=== PATIENT | male | born 1945 | race Caucasian/White ===

== ENCOUNTER 2020-09-03 15:14 | Emergency (ER) | payer MEDICARE, OTHER ==
--- NOTE | 2020-09-03 16:14 | ERPHSYRPT ---
- History of Present Illness Historian: patient Patient Subjective Stated Complaint: pt here for left falnk pain off and on, he states he thinks it a kidney stone, some nausea, no fever Triage Nursing Assessment: pt alert, walked in, resp easy, skin w/d/p. abd soft, no edema Physician History: 75 yo wm w L flank pain x10 hours today which resolved 2 hours before ER arrival. Pt states that it feels like a kidney stone which he had many yrs ago. He is now painfree. He denies vomiting/dysuria/hematuria/fever/chest pain/diarrhea/melena/hematochezia. Pt has been nauseated. Pain was an 8 on scale and started to improve when pt took 2 of his Clarence's earlier today. Timing/Duration: today Activities at Onset: sleep Quality: stabbing Abdominal Pain Onset Location: flank Pain Radiation: no radiation Severity of Pain-Max: severe Severity of Pain-Current: none Modifying Factors: Improves With: other (Better w Clarence x2) Associated Symptoms: back, nausea, No chest pain, No diaphoresis, No diarrhea, No fever/chills, No fatigue, No headache, No heartburn, No loss of appetite, No neck pain, No rash, No shortness of breath, No syncope, No testicular pain, No vomiting, No weakness Previous symptoms: same symptoms as today (w Kidney stones) Home Medications: Hydrocodone Bit/Acetaminophen [Hydrocodon-Acetaminophen 5-325] 1 ea DAILY 09/03/20 [History] Lisinopril 10 mg [Zestril 10 MG] 1 ea DAILY 09/03/20 [History] Simvastatin [Zocor] 1 ea DAILY 09/03/20 [History] Hx Influenza Vaccination/Date Given: Yes Hx Pneumococcal Vaccination/Date Given: Yes Immunizations Up to Date: Yes Travel Risk - International Travel Have you traveled outside of the country in past 3 weeks: No - Coronavirus Screening Are you exhibiting any of the following symptoms?: No Close contact with a COVID-19 positive Pt in past 14-21 Days: No - Review of Systems Constitutional: No Symptoms Eyes: No Symptoms Ears, Nose, & Throat: No Symptoms Respiratory: No Symptoms Cardiac: No Symptoms Abdominal/Gastrointestinal: Nausea, Appetite Changes Genitourinary Symptoms: Flank Pain Musculoskeletal: No Symptoms Skin: No Symptoms Neurological: No Symptoms Psychological: No Symptoms Endocrine: No Symptoms Hematologic/Lymphatic: No Symptoms Immunological/Allergic: No Symptoms - Past Medical History Pertinent Past Medical History: Yes Cardiac History: High Cholesterol, Hypertension - Past Surgical History Past Surgical History: Yes Gastrointestinal: Pancreatic Surgery Musculoskeletal: Orthopedic Surgery Male Surgical History: Testicular Surgery Other Surgical History: knee, hand - Social History Smoking Status: Current every day smoker Exposure to second hand smoke: Yes Drug Use: none Patient Lives Alone: Yes Significant Family History: no pertinent family hx - Nursing Vital Signs Nursing Vital Signs: Initial Vital Signs Temperature 97.0 F 09/03/20 15:30 Pulse Rate 86 09/03/20 15:30 Respiratory Rate 18 09/03/20 15:30 Blood Pressure 168/95 09/03/20 15:30 O2 Sat by Pulse Oximetry 94 L 09/03/20 15:30 Pain Scale Pain Intensity 0 - Physical Exam General Appearance: no apparent distress Eye Exam: PERRL/EOMI, eyes nml inspection Ears, Nose, Throat Exam: normal ENT inspection, TMs normal, pharynx normal, moist mucous membranes Neck Exam: normal inspection, non-tender, supple, full range of motion, No meningismus, No mass, No Brudzinski, No Kernig's Respiratory Exam: normal breath sounds, lungs clear, airway intact Cardiovascular Exam: regular rate/rhythm, normal heart sounds, normal peripheral pulses, No murmur Gastrointestinal/Abdomen Exam: soft, normal bowel sounds, No tenderness, No distention, No guarding, No ecchymosis Back Exam: normal inspection, normal range of motion, No CVA tenderness, No vertebral tenderness Extremity Exam: normal inspection, normal range of motion Neurologic Exam: alert, oriented x 3, cooperative, charge operator II-XII nml as tested, normal mood/affect, sensation nml, No nml cerebellar function, No nml station & gait, No motor deficits, No sensory deficit Skin Exam: normal color, warm, dry Lymphatic Exam: No adenopathy SpO2 Interpretation: normal SpO2: 94 O2 Delivery: Room Air - Course Nursing assessment & vital signs reviewed: Yes - CT Exams Abdomen/Pelvis CT Interpretation: Discussed w/radiologist (4mm distal L ureteral stone/Mild hydro/B renal cysts/splenomegaly) Ordered Tests: Active Orders 24 hr Category Date Time Status ABDOMEN AND PELVIS W/0 CONTRAS [CT] Stat Exams 09/03/20 15:55 Completed UA W/RFX UR CULTURE Stat Lab 09/03/20 16:03 Completed Lab/Rad Data: Laboratory Results 09/03/20 Range/Units 16:03 Urine Color YELLOW (YELLOW) Urine Appearance CLEAR (CLEAR) Urine pH 5.0 (5-6) Ur Specific [place] 1.013 (1.005-1.025) Urine Protein NEGATIVE (Negative) Urine Ketones NEGATIVE (NEGATIVE) Urine Blood MODERATE (0-5) Toney/ul Urine Nitrite NEGATIVE (NEGATIVE) Urine Bilirubin NEGATIVE (NEGATIVE) Urine Urobilinogen NEGATIVE (0-1) mg/dL Ur Leukocyte Esterase NEGATIVE (NEGATIVE) Urine WBC (Auto) NONE (0-5) /HPF Urine RBC (Auto) 16-25 (0-2) /HPF U Epithel Cells (Auto) NONE (FEW) /HPF Urine Bacteria (Auto) NONE (NEGATIVE) /HPF Urine Mucus (Auto) SLIGHT (NEGATIVE) /HPF Urine Culture Reflexed NO (NO) Urine Glucose NEGATIVE (NEGATIVE) mg/dL - Progress Progress: unchanged Progress Note: 09/03/20 17:12 Pt painfree during stay. Counseled pt/family regarding: lab results, rad results - Departure Departure Disposition: Home Clinical Impression: Ureterolithiasis Condition: Stable Critical Care Time: No Referrals: DOCTOR,NO FAMILY [Primary Care Provider] - Instructions: Kidney Stones (DC) Additional Instructions: Strain all urine Home pain meds as needed Return to ER for increasing pain or temperature greater than 100.5 Follow up with family MD or urologist
[2020-09-03 16:16] LABS: Appearance CLEAR (CLEAR); Bilirubin NEGATIVE (NEGATIVE); Blood MODERATE Ery/ul (0-5); Glucose NEGATIVE (NEGATIVE); Ketones NEGATIVE (NEGATIVE); Leukocyte Esterase NEGATIVE (NEGATIVE); Mucus SLIGHT /HPF (NEGATIVE); Nitrite NEGATIVE (NEGATIVE); Protein,Urine Dip NEGATIVE (Negative); Specific Gravity 1.013 (1.005-1.025); Urobilinogen NEGATIVE mg/dL (0-1)
--- NOTE | 2020-09-03 16:38 | XRAY ---
Indication: Left flank pain. Remote history of kidney stones. Multiple contiguous axial images obtained through the abdomen and pelvis without contrast using renal stone protocol. Comparison: None Lung bases are clear. Heart is not enlarged. Moderate-sized hiatal hernia. There is a 4 mm distal left ureter calculus approximately 4 cm proximal to the UVJ. Left ureter is slightly prominent with mild hydronephrosis and mild perinephric stranding consistent with obstructive uropathy. No free fluid/air. Inferior left renal pole demonstrates a 13.7 cm exophytic cyst with thin rim of calcification. Left kidney demonstrates 2 exophytic cysts, largest midpole posteriorly measuring 5.1 cm. 15.5 cm splenomegaly with 8 cm densely calcified cyst. Cyst demonstrates minimal intraluminal hyperdensities/calcifications layering. Several hepatic/splenic calcified granulomas. 1 cm right lobe hepatic cyst/hemangioma. Body/tail of pancreas are surgically absent. Enlarged prostate gland with chunky benign-appearing calcifications slightly impresses on the base of the bladder. Noncontrasted stomach and bowel loops appear nonobstructed. Remaining gallbladder, adrenal glands, and bladder appear unremarkable for noncontrast exam. Moderate scattered aortoiliac calcifications without AAA. Osseous structures demonstrates mild osteopenia, mild/moderate multilevel thoracolumbar degenerative spondylosis, and moderate dextrorotoscoliosis centered at L2. 1.3 cm right innominate bone island. Impression: 1. 4 mm distal left ureter calculus producing obstructive uropathy as detailed. 2. Incidental large bilateral renal cysts, splenomegaly with large densely calcified complex cyst, moderate sized hiatal hernia, small hepatic cyst/hemangioma, enlarged prostate gland, and chronic bony findings.
[2020-09-03 17:58] VITALS: BP 133/81; PULSE 67
[2020-09-03 20:16] VITALS: O2SAT 94
== END 2020-09-03 17:55 | disposition home or self-care (01) ==
LOC: ED 15:14
DX: N20.1 Calculus of ureter (principal); I10 Essential (primary) hypertension; Z79.899 Other long term (current) drug therapy; E78.00 Pure hypercholesterolemia, unspecified; Z72.0 Tobacco use
CPT/HCPCS: 74176; 81001; 99284

== ENCOUNTER 2020-09-09 12:56 | Emergency (ER) | payer MEDICARE, OTHER ==
[2020-09-09] MEDS ORDERED: Sodium Chloride 0.9% 1000 ML 1,000 ML IV STA (13:16)
[2020-09-09] MEDS ORDERED: TORAdol 30 mg Injection IV ONE (13:16)
--- NOTE | 2020-09-09 13:31 | ERPHSYRPT ---
- History of Present Illness Time Seen by Provider: 09/09/20 13:15 Source: patient Exam Limitations: no limitations Patient Subjective Stated Complaint: pt here for left flank pain, started at 0200 this morning,pt has kidney stone last week that was in bladder Triage Nursing Assessment: pt alert, walked in, face mask in place, resp easy, skin w/d/p.abd soft, he states he has some vomiting today Physician History: Patient is a 75-year-old male presents to our ED with complaints of left-sided flank pain. Patient was in our ED approximately 1 week ago. He was diagnosed with a 4 mm left ureterolithiasis. Patient was advised to follow-up with a urologist or his family doctor but has not done so. Patient is here because he is experiencing recurrence of his pain. Pain described as an ache that is localized. No trauma. No fever. Patient states he has been feeling somewhat nauseous and vomited prior to arrival. No obvious hematuria or dysuria. Symptoms are mild to moderate in intensity. No specific worsening or improving factors. Patient voices no other complaints or concerns at this time. Timing/Duration: today Severity: moderate Modifying Factors: Improves With: nothing Associated Symptoms: nausea, vomiting, No shortness of breath, No diaphoresis, No cough, No chills, No chest pain, No headaches, No loss of appetite, No malaise, No syncope, No seizure, No weakness Allergies/Adverse Reactions: No Known Drug Allergies Allergy (Unverified 09/09/20 13:13) Home Medications: Hydrocodone Bit/Acetaminophen [Hydrocodon-Acetaminophen 5-325] 1 ea DAILY 09/03/20 [History] Lisinopril 10 mg [Zestril 10 MG] 1 ea DAILY 09/03/20 [History] Simvastatin [Zocor] 1 ea DAILY 09/03/20 [History] Hx Tetanus, Diphtheria Vaccination/Date Given: Yes Hx Influenza Vaccination/Date Given: Yes Hx Pneumococcal Vaccination/Date Given: Yes Immunizations Up to Date: Yes Travel Risk - International Travel Have you traveled outside of the country in past 3 weeks: No - Coronavirus Screening Are you exhibiting any of the following symptoms?: No Close contact with a COVID-19 positive Pt in past 14-21 Days: No - Review of Systems Constitutional: No Symptoms, No Fever, No Chills Eyes: No Symptoms Ears, Nose, & Throat: No Symptoms Respiratory: No Symptoms, No Cough, No Dyspnea Cardiac: No Symptoms, No Chest Pain, No Edema, No Syncope Abdominal/Gastrointestinal: No Symptoms, No Abdominal Pain, No Nausea, No Vomiting, No Diarrhea Genitourinary Symptoms: No Symptoms, No Dysuria Musculoskeletal: No Symptoms, No Back Pain, No Neck Pain Skin: No Symptoms, No Rash Neurological: No Symptoms, No Dizziness, No Focal Weakness, No Sensory Changes Psychological: No Symptoms Endocrine: No Symptoms Hematologic/Lymphatic: No Symptoms Immunological/Allergic: No Symptoms All Other Systems: Reviewed and Negative - Past Medical History Pertinent Past Medical History: Yes Cardiac History: High Cholesterol, Hypertension - Past Surgical History Past Surgical History: Yes Gastrointestinal: Pancreatic Surgery Musculoskeletal: Orthopedic Surgery Male Surgical History: Testicular Surgery Other Surgical History: knee, hand - Social History Smoking Status: Current every day smoker Exposure to second hand smoke: Yes Drug Use: none Patient Lives Alone: No Significant Family History: no pertinent family hx - Nursing Vital Signs Nursing Vital Signs: Initial Vital Signs Temperature 97.2 F 09/09/20 13:08 Pulse Rate 85 09/09/20 13:08 Respiratory Rate 18 09/09/20 13:08 Blood Pressure 170/100 09/09/20 13:08 O2 Sat by Pulse Oximetry 94 L 09/09/20 13:08 Pain Scale Pain Intensity 4 - Physical Exam General Appearance: no apparent distress, alert Eye Exam: PERRL/EOMI, eyes nml inspection Ears, Nose, Throat Exam: normal ENT inspection, TMs normal, pharynx normal, moist mucous membranes Neck Exam: normal inspection, non-tender, supple, full range of motion Respiratory Exam: normal breath sounds, lungs clear, No respiratory distress Cardiovascular Exam: regular rate/rhythm, normal heart sounds, normal peripheral pulses Gastrointestinal/Abdomen Exam: soft, normal bowel sounds, other (Left-sided CVA tenderness.), No tenderness, No mass Back Exam: normal inspection, normal range of motion, No CVA tenderness, No vertebral tenderness Extremity Exam: normal inspection, normal range of motion, pelvis stable Neurologic Exam: alert, oriented x 3, cooperative, normal mood/affect, nml cerebellar function, nml station & gait, sensation nml, No motor deficits Skin Exam: normal color, warm, dry, No rash Lymphatic Exam: No adenopathy SpO2 Interpretation: normal SpO2: 94 O2 Delivery: Room Air - Course Nursing assessment & vital signs reviewed: Yes - CT Exams Abdomen/Pelvis CT Interpretation: Tele-radiologist Report (Hiatal hernia, UVJ stone, hydronephrosis, perinephric stranding, bilateral renal cyst, splenomegaly, prostate hypertrophy, osteopenia, spondylolysis, scoliosis) Ordered Tests: Active Orders 24 hr Category Date Time Status IV Insertion STAT Care 09/09/20 13:16 Active ABDOMEN AND PELVIS W/0 CONTRAS [CT] Stat Exams 09/09/20 13:17 Completed CBC W DIFF Stat Lab 09/09/20 13:33 Completed CMP Stat Lab 09/09/20 13:33 Completed UA W/RFX UR CULTURE Stat Lab 09/09/20 13:51 Ordered Medication Summary Discontinued Medications Generic Name Dose Route Start Last Admin Trade Name Freq PRN Reason Stop Dose Admin Sodium Chloride 1,000 mls @ 999 mls/hr 09/09/20 13:16 09/09/20 13:55 Sodium Chloride 0.9% 1000 Ml IV 09/09/20 14:16 999 mls/hr .Q1H1M STA Administration Sodium Chloride Confirm 09/09/20 13:50 Sodium Chloride 0.9% 1000 Ml Administered 09/09/20 13:51 Dose 1,000 mls @ ud .ROUTE .STK-MED ONE Ketorolac Tromethamine 30 mg 09/09/20 13:16 09/09/20 13:56 Toradol 30 Mg Injection IV 09/09/20 13:17 30 mg STAT ONE Administration Ketorolac Tromethamine Confirm 09/09/20 13:50 Toradol 30 Mg Injection Administered 09/09/20 13:51 Dose 30 mg .ROUTE .STK-MED ONE Lab/Rad Data: Laboratory Result Diagrams 09/09/20 13:33 09/09/20 13:33 Laboratory Results 09/09/20 09/09/20 Range/Units 13:33 13:33 WBC 11.9 H (4.0-10.5) K/mm3 RBC 5.31 (4.1-5.6) M/mm3 Hgb 14.8 (12.5-18.0) gm/dl Hct 46.1 (42-50) % MCV 86.8 (78-100) fl MCH 27.9 (26-32) pg MCHC 32.1 (32-36) g/dl RDW 13.2 (11.5-14.0) % Plt Count 162 (150-450) K/mm3 MPV 11.1 H (7.5-11.0) fl Gran % 88.2 H (36.0-66.0) % Eos # (Auto) 0.01 (0-0.5) Absolute Lymphs (auto) 0.72 L (1.0-4.6) Absolute Monos (auto) 0.67 (0.0-1.3) Lymphocytes % 6.0 L (24.0-44.0) % Monocytes % 5.6 (0.0-12.0) % Eosinophils % 0.1 (0.00-5.0) % Basophils % 0.1 (0.0-0.4) % Absolute Granulocytes 10.51 H (1.4-6.9) Basophils # 0.01 (0-0.4) Sodium 137 (137-145) mmol/L Potassium 4.7 (3.5-5.1) mmol/L Chloride 103 (98-107) mmol/L Carbon Dioxide 26 (22-30) mmol/L Anion Gap 11.7 (5-15) MEQ/L BUN 28 H (9-20) mg/dL Creatinine 1.06 (0.66-1.25) mg/dL Estimated GFR > 60.0 ML/MIN Glucose 163 H (74-106) mg/dL Calcium 9.4 (8.4-10.2) mg/dL Total Bilirubin 1.10 (0.2-1.3) mg/dL AST 27 (17-59) U/L ALT 18 (0-50) U/L Alkaline Phosphatase 63 (38-126) U/L Serum Total Protein 6.4 (6.3-8.2) g/dL Albumin 4.2 (3.5-5.0) g/dL - Progress Progress: improved Progress Note: 09/09/20 14:37 Patient reassessed. He is pain-free. The stone appears to be at the lumen just prior to elimination into the bladder. Patient did not receive Flomax during his last visit. We will provide patient a prescription for Flomax and Toradol. [facility] He will call the [place] today to schedule an appointment with a urologist. Renal function within normal limits. 09/09/20 14:38 Counseled pt/family regarding: lab results, diagnosis, need for follow-up, rad results - Departure Departure Disposition: Home Clinical Impression: Ureterolithiasis, Hydronephrosis, Renal cyst, Splenomegaly, Prostate hypertrophy, Osteopenia, Spondylolysis, Scoliosis Condition: Stable Critical Care Time: No Referrals: [facility],'[facility] [Primary Care Provider] - Instructions: Kidney Stones (DC) Prescriptions: Tamsulosin HCl 0.4 mg [Flomax 0.4 MG] 0.4 mg PO DAILY 14 Days #14 cap Ketorolac Tromethamine [Toradol] 10 mg PO TID 5 Days #15 tablet
[2020-09-09 13:40] LABS: Absolute Neutrophil Ct (ANC) 10.51 (1.4-6.9); BASOPHIL % 0.1 % (0.0-0.4); Basophil (Absolute #) 0.01 (0-0.4); Eosinophil % 0.1 % (0.00-5.0); Eosinophil (Absolute #) 0.01 (0-0.5); Hematocrit 46.1 % (42-50); Hemoglobin 14.8 gm/dl (12.5-18.0); Lymphocyte (Absolute #) 0.72 (1.0-4.6); Mean Cell Volume 86.8 fl (78-100); Mean Corpuscular Hemoglobin 27.9 pg (26-32); Mean Corpuscular Hgb Concent. 32.1 g/dl (32-36); Mean Platelet Volume 11.1 fl (7.5-11.0); Monocyte (Absolute #) 0.67 (0.0-1.3); Monocytes % 5.6 % (0.0-12.0); Neutrophil % 88.2 % (36.0-66.0); Platelet Count 162 K/mm3 (150-450); Red Blood Count 5.31 M/mm3 (4.1-5.6); Red Cell Distribution Width 13.2 % (11.5-14.0); White Blood Count 11.9 K/mm3 (4.0-10.5)
[2020-09-09 13:46] LABS: ALBUMIN 4.2 g/dL (3.5-5.0); ALKALINE PHOSPHATASE 63 U/L (38-126); ANION GAP 11.7 MEQ/L (5-15); BLOOD UREA NITROGEN 28 mg/dL (9-20); CHLORIDE 103 mmol/L (98-107); Calcium 9.4 mg/dL (8.4-10.2); Carbon Dioxide 26 mmol/L (22-30); Creatinine 1 1.06 mg/dL (0.66-1.25); EST GLOMERULAR FILTRATION RATE > 60.0 ML/MIN; Glucose 163 mg/dL (74-106); Potassium 4.7 mmol/L (3.5-5.1); SGOT/AST 27 U/L (17-59); SGPT/ALT 18 U/L (0-50); SODIUM 137 mmol/L (137-145); Total Protein 6.4 g/dL (6.3-8.2)
[2020-09-09] MEDS ORDERED: Sodium Chloride 0.9% 1000 ML 1,000 ML ONE (13:50)
[2020-09-09] MEDS ORDERED: TORAdol 30 mg Injection ONE (13:50)
--- NOTE | 2020-09-09 14:15 | XRAY ---
Indication: Left flank pain 1 week. Multiple contiguous axial images obtained through the abdomen and pelvis without contrast using renal stone protocol. Comparison: September 03, 2020. Lung bases remain clear. Heart is not enlarged. Stable moderate-sized hiatal hernia. Previous 4 mm left ureteral calculus has progressed distally to the UVJ with calculus now seen in the bladder lumen. Proximal left ureter remains mildly prominent with stable mild hydronephrosis and perinephric stranding again favoring obstructive uropathy. No right renal calculus or evidence for obstructive uropathy. Stable large bilateral renal cysts. Noncontrasted stomach and bowel loops remain nonobstructed. Stable 15.5 cm splenomegaly with large densely calcified complex cyst, hepatic/splenic calcified granulomas, small right lobe hepatic cyst/hemangioma, surgically absent pancreatic body/tail, enlarged prostate gland with chunky benign calcifications, and moderate aortoiliac calcifications. Remaining liver, gallbladder, pancreas, spleen, adrenal glands, kidneys, ureters, and bladder are unremarkable for noncontrast exam. Stable osteopenia, multilevel degenerative spondylosis, scoliosis, and right innominate bone island. Impression: 1. 4 mm left ureter has progressed distally to the level of the UVJ with grossly stable partial obstructive uropathy. 2. Stable large bilateral renal cysts, splenomegaly with large calcified complex cyst, hiatal hernia, small hepatic cysts/hemangioma, enlarged prostate gland, and chronic bony findings.
[2020-09-09] MEDS ORDERED: Flomax 0.4 MG ONE (14:48)
[2020-09-09 14:54] VITALS: BP 123/84; PULSE 72; O2SAT 96
[2020-09-09 15:36] LABS: Appearance CLEAR (CLEAR); Bacteria RARE /HPF (NEGATIVE); Bilirubin NEGATIVE (NEGATIVE); Blood MODERATE Ery/ul (0-5); Glucose NEGATIVE (NEGATIVE); Ketones TRACE (NEGATIVE); Leukocyte Esterase NEGATIVE (NEGATIVE); Mucus SLIGHT /HPF (NEGATIVE); Nitrite NEGATIVE (NEGATIVE); Protein,Urine Dip NEGATIVE (Negative); Specific Gravity 1.027 (1.005-1.025); Urobilinogen NEGATIVE mg/dL (0-1); WBC 0-2 /HPF (0-5)
[2020-09-10] MEDS ORDERED: Flomax 0.4 MG PO SCH (10:00)
== END 2020-09-09 15:55 | disposition home or self-care (01) ==
LOC: ED 12:56
DX: N13.2 Hydronephrosis with renal and ureteral calculous obstruction (principal); N28.1 Cyst of kidney, acquired; R16.1 Splenomegaly, not elsewhere classified; N40.1 Benign prostatic hyperplasia with lower urinary tract symptoms; M85.80 Other specified disorders of bone density and structure, unspecified site; M47.9 Spondylosis, unspecified; M41.9 Scoliosis, unspecified; I10 Essential (primary) hypertension; E78.00 Pure hypercholesterolemia, unspecified
CPT/HCPCS: 36415; 74176; 80053; 81001; 85025; 96360; 96361; 96374; 99284; J1885; A9270-GY

== ENCOUNTER 2022-06-23 08:21 | Day surgery (SDC) | payer MEDICARE, OTHER ==
[~2022-06-23 08:21] MED LIST: Ak-Dilate OPHTHALMIC*** 1.065 ML, Cyclogyl 1% OPHTH SOL 1.065 ML, GATIFLOXACIN 0.5% OPH... OP ONE; BETADINE 5% OPHTHALMIC 30 ML OP ONE; Lactated Ringers 1,000 ML IV SCH; NON-FORMULARY ITEM OP ONE; TETRACAINE 0.5% STERI-UNIT SOL OP ONE; cefUROXime sodium 0.005 GM in Sodium Chloride Flush 30 ML*** 0.5 ML IJ ONE
[2022-06-23] MEDS ORDERED: Lactated Ringers 1,000 ML IV ONE (08:30)
[2022-06-23 09:16] LABS: INR 1.09 (0.8-3.0); PROTIME 11.5 SECONDS (9.4-12.5)
[2022-06-23] MEDS ORDERED: ACETAZOLAMIDE 250 MG TABLET PO ONE (11:00)
[2022-06-23] MEDS ORDERED: Zofran 4 MG/2 ML VIAL IV PRN (11:00)
[2022-06-23] MEDS ORDERED: DIPRIVAN 200 MG/20 ML IV ONE (11:06)
[2022-06-23 11:38] VITALS: BP 98/67; PULSE 66; O2SAT 95
[2022-06-23] MEDS ORDERED: LIDOCAINE HCL 1% 50 MG/5 ML VL PF IJ ONE (14:58)
[2022-06-23] MEDS ORDERED: Epinephrine Preservative Free 1 MG/ML IJ ONE (14:58)
== END 2022-06-23 11:45 | disposition home or self-care (01) ==
LOC: SDC 08:21
PROVIDERS: ATTEND Ophthalmology
DX: H25.812 Combined forms of age-related cataract, left eye (principal); E11.9 Type 2 diabetes mellitus without complications; Z79.01 Long term (current) use of anticoagulants
CPT/HCPCS: 36415; 82947; 85610; 99100; C1780; J0171; J2001; J2704; A9270-GY

== ENCOUNTER 2022-08-18 08:24 | Day surgery (SDC) | payer MEDICARE, OTHER ==
[2022-08-18] MEDS ORDERED: Epinephrine Preservative Free 1 MG/ML IJ ONE (08:25)
[2022-08-18] MEDS ORDERED: LIDOCAINE HCL 1% 50 MG/5 ML VL PF IJ ONE (08:25)
[2022-08-18] MEDS ORDERED: Ak-Dilate OPHTHALMIC*** 1.065 ML, Cyclogyl 1% OPHTH SOL 1.065 ML, GATIFLOXACIN 0.5% OPH... OP ONE ×4 (08:30)
[2022-08-18] MEDS ORDERED: Lactated Ringers 1,000 ML IV SCH (08:30)
[2022-08-18] MEDS ORDERED: BETADINE 5% OPHTHALMIC 30 ML OP ONE (08:30)
[2022-08-18] MEDS ORDERED: cefUROXime sodium 0.005 GM in Sodium Chloride Flush 30 ML*** 0.5 ML IJ ONE (08:30)
[2022-08-18] MEDS ORDERED: TETRACAINE 0.5% STERI-UNIT SOL OP ONE ×2 (08:30)
[2022-08-18] MEDS ORDERED: NON-FORMULARY ITEM OP ONE (08:30)
[2022-08-18] MEDS ORDERED: Lactated Ringers 0 ML IV ONE (08:37)
[2022-08-18] MEDS ORDERED: ACETAZOLAMIDE 250 MG TABLET PO ONE (10:30)
[2022-08-18] MEDS ORDERED: Zofran 4 MG/2 ML VIAL IV PRN (10:30)
[2022-08-18] MEDS ORDERED: DIPRIVAN 200 MG/20 ML IV ONE (10:37)
[2022-08-18] MEDS ORDERED: SUBLIMAZE 100 MCG/2 ML ONE (10:38)
[2022-08-18] MEDS ORDERED: Lactated Ringers 1,000 ML IV ONE (10:51)
[2022-08-18 11:02] VITALS: O2SAT 94
[2022-08-18 11:15] VITALS: BP 107/67; PULSE 90
== END 2022-08-18 11:17 | disposition home or self-care (01) ==
LOC: SDC 08:24
PROVIDERS: ATTEND Ophthalmology
DX: H25.811 Combined forms of age-related cataract, right eye (principal); E11.9 Type 2 diabetes mellitus without complications
CPT/HCPCS: 82947; 99100; C1780; J0171; J2001; J2704; J3010; A9270-GY

== ENCOUNTER 2024-01-30 16:35 | Emergency (ER) | payer MEDICARE, OTHER ==
[2024-01-30] MEDS ORDERED: DUONEB 0.5-3 MG/3 ml Neb IH ONE (16:41)
[2024-01-30 16:45] VITALS: BP 182/80; TEMP 102.4; O2SAT 90
[2024-01-30] MEDS: DUONEB 0.5-3 MG/3 ml Neb IH ONE (16:46)
[2024-01-30 16:54] LABS: Absolute Neutrophil Ct (ANC) 4.83 x10^3/uL (1.4-6.9); BASOPHIL % 0.5 % (0.0-0.4); Basophil (Absolute #) 0.03 x10^3/uL (0-0.4); Eosinophil % 0.6 % (0.00-5.0); Eosinophil (Absolute #) 0.04 x10^3/uL (0-0.5); Hematocrit 45.4 % (42-50); Hemoglobin 14.8 g/dL (12.5-18.0); IMMATURE GRAN # 0.01 x10^3u/L (0.00-0.03); IMMATURE GRAN % 0.2 % (0.00-0.4); Lymphocyte (Absolute #) 0.78 x10^3/uL (1.0-4.6); Lymphocytes % 12.2 % (24.0-44.0); Mean Cell Volume 81.4 fL (78-100); Mean Corpuscular Hemoglobin 26.5 pg (26-32); Mean Corpuscular Hgb Concent. 32.6 g/dL (32-36); Mean Platelet Volume 9.8 fL (7.5-11.0); Neutrophil % 75.5 % (36.0-66.0); Platelet Count 131 x10^3/uL (150-450); Red Blood Count 5.58 x10^6/uL (4.1-5.6); Red Cell Distribution Width 13.8 % (11.5-14.0); White Blood Count 6.4 x10^3/uL (4.0-10.5)
[2024-01-30] MEDS: PULMICORT 0.5 MG/2 ML RESPULES IH ONE (16:55)
[2024-01-30] MEDS ORDERED: Sodium Chloride 0.9% 1000 ML 1,000 ML ONE (16:56)
[2024-01-30] MEDS ORDERED: Sterile H2O 10 ml IJ ONE (16:56)
[2024-01-30] MEDS ORDERED: solu-MEDROL ONE (16:56)
[2024-01-30] MEDS ORDERED: Levofloxacin 500MG/100ML D5W 500 MG/100 ML BAG IV ONE (16:57)
[2024-01-30 16:58] VITALS: PULSE 88; RESP 22
[2024-01-30] MEDS: Sodium Chloride 0.9% 1000 ML 1,000 ML IV SCH (16:59)
[2024-01-30] MEDS: solu-MEDROL 125 MG, Sterile H2O 10 ml 2 ML IV ONE (16:59)
[2024-01-30] MEDS: Levofloxacin 500MG/100ML D5W 500 MG/100 ML BAG IV STA (17:02)
--- NOTE | 2024-01-30 17:06 | ERPHSYRPT ---
- History of Present Illness Time Seen by Provider: 01/30/24 17:04 Source: patient Exam Limitations: no limitations Patient Subjective Stated Complaint: shortness of breath, cough Triage Nursing Assessment: Pt brought to the ER by his , hypertensive, hypoxic, febrile, denies pain, wheezing, pulses normal, using accessory muscles, hx of copd and gets pneumonia yearly, appears to be in moderate discomfort Physician History: shortness of breath, cough for 2 days Timing/Duration: yesterday Activities at Onset: none Severity of Dyspnea-Max: moderate Severity of Dyspnea-Current: moderate Possible Cause: frequent episodes Associated Symptoms: fever, wheezing, chills, productive cough, tightness, No edema Allergies/Adverse Reactions: brompheniramine [From Dimetapp (brompheniramine-PPA)] Allergy (Intermediate, Verified 01/30/24 16:46) phenylpropanolamine [From Dimetapp (brompheniramine-PPA)] Allergy (Intermediate, Verified 01/30/24 16:46) metformin Adverse Reaction (Intermediate, Verified 01/30/24 16:46) Home Medications: Simvastatin [Zocor] 80 mg PO DAILY 09/03/20 [History] Hydrochlorothiazide 25 mg [hydroDIURIL 25 MG] 25 mg PO DAILY 06/09/22 [History] Potassium Citrate [Potassium Citrate ER] 20 meq PO DAILY 06/09/22 [History] Albuterol Sulfate [Albuterol Sulfate Hfa] 2 inh PO Q4H 01/30/24 [History] Fluticasone/Umeclidin/Vilanter [Trelegy Ellipta 100-62.5-25] 2 inh PO UD 01/30/24 [History] Losartan Potassium [Cozaar] 25 mg PO DAILY 01/30/24 [History] Hx Tetanus, Diphtheria Vaccination/Date Given: Yes Hx Influenza Vaccination/Date Given: Yes Hx Pneumococcal Vaccination/Date Given: Yes Travel Risk - International Travel Have you traveled outside of the country in past 3 weeks: No - Emerging Infectious Disease Are you exhibiting symptoms associated with any current EIDs: Yes Symptoms: Cough: New Onset, Shortness of Breath - Review of Systems Constitutional: Fever, Chills, Fatigue, Weakness Eyes: No Symptoms Ears, Nose, & Throat: No Symptoms Respiratory: Cough, Dyspnea, Dyspnea on Exertion (KERNS), Wheezing Cardiac: No Chest Pain, No Edema, No Syncope Abdominal/Gastrointestinal: No Abdominal Pain, No Nausea, No Vomiting, No Diarrhea Genitourinary Symptoms: No Dysuria Musculoskeletal: No Back Pain, No Neck Pain Skin: No Rash Neurological: No Dizziness, No Focal Weakness, No Sensory Changes Psychological: No Symptoms Endocrine: No Symptoms All Other Systems: Reviewed and Negative - Past Medical History Pertinent Past Medical History: Yes Neurological History: No Pertinent History ENT History: No Pertinent History Cardiac History: High Cholesterol, Hypertension Respiratory History: COPD Endocrine Medical History: Diabetes Type II Musculoskeletal History: Osteoarthritis GI Medical History: No Pertinent History History: Other Psycho-Social History: No Pertinent History Male Reproductive Disorders: No Pertinent History Other Medical History: basal cell ca skin, bph, calculus of kidney, cystic kidney disease, genital organ anom nex, low back pain, obesity , pain l shoulder, ptosis of eyelid, splenomagaly, hearing loss, - Past Surgical History Past Surgical History: Yes Neuro Surgical History: No Pertinent History Cardiac: No Pertinent History Respiratory: No Pertinent History Gastrointestinal: Pancreatic Surgery Genitourinary: No Pertinent History Musculoskeletal: Orthopedic Surgery Male Surgical History: Testicular Surgery Other Surgical History: knee rt, rt hand,nose surgery, Significant Family History: no pertinent family hx - Social History Smoking Status: Former smoker Exposure to second hand smoke: No Drug Use: none Patient Lives Alone: No - Nursing Vital Signs Nursing Vital Signs: Initial Vital Signs Temperature 102.4 F 01/30/24 16:36 Pulse Rate 93 H 01/30/24 16:36 Respiratory Rate 22 01/30/24 16:36 Blood Pressure 182/80 01/30/24 16:36 O2 Sat by Pulse Oximetry 92 L 01/30/24 16:36 Pain Scale Pain Intensity 0 - Physical Exam General Appearance: no apparent distress, alert Eye Exam: PERRL/EOMI Neck Exam: normal inspection, supple Respiratory Exam: respiratory distress, diminished breath sounds, accessory muscle use, prolonged expirations, rhonchi, wheezing Cardiovascular/Chest Exam: normal heart sounds, regular rate/rhythm Abdominal/Gastrointestinal Exam: soft, No tenderness, No distention, No mass Extremity Exam: non-tender, normal range of motion, normal inspection, no calf tenderness, no pedal edema Neurologic Exam: alert, oriented x 3, cooperative, cause analyst II-XII nml as tested, sensation nml, No motor deficits Skin Exam: normal color, warm, No dry SpO2 Interpretation: borderline oxygenation SpO2: 90 O2 Delivery: Room Air - Course Nursing assessment & vital signs reviewed: Yes EKG Interpreted by Me: Sinus Rhythm, Non-specific ST Changes - Radiology Exams Chest X-ray Interpretation: Interpreted by me (Chronic COPD changes), Reviewed by me Ordered Tests: Active Orders 24 hr Category Date Time Status Patient Scheduler STAT Care 01/30/24 16:39 Completed EKG-ER Only STAT Care 01/30/24 16:38 Completed IV Insertion STAT Care 01/30/24 16:38 Completed Oxygen-ED Only Nasal Cannula 3 lpm Care 01/30/24 16:47 Completed Pulse Oximetry (ED) STAT Care 01/30/24 16:38 Completed CHEST 2 VIEWS (PA AND LAT) Stat Exams 01/30/24 16:38 Taken BLOOD CULTURE Stat Lab 01/30/24 17:09 Received CBC W DIFF Stat Lab 01/30/24 16:51 Completed CMP Stat Lab 01/30/24 16:51 Completed NT PRO BNPII Stat Lab 01/30/24 16:51 Completed TROPONIN Q4H Lab 01/30/24 16:51 Completed TROPONIN Q4H Lab 01/30/24 20:45 Ordered Respiratory Therapy Assessment DAILY RT 01/30/24 16:55 Completed Medication Summary Discontinued Medications Generic Name Dose Route Start Last Admin Trade Name Freq PRN Reason Stop Dose Admin Albuterol/Ipratropium 3 ml 01/30/24 16:41 01/30/24 16:46 Ipratropium/Albuterol Sulfate 3 Ml Ampul.Neb IH 01/30/24 16:42 3 ml STAT ONE Administration Albuterol/Ipratropium Confirm 01/30/24 16:41 Ipratropium/Albuterol Sulfate 3 Ml Ampul.Neb Administered 01/30/24 16:42 Dose 3 ml IH .STK-MED ONE Budesonide 0.5 mg 01/30/24 16:50 01/30/24 16:55 Budesonide 0.5 Mg/2 Ml Ampul.Neb. IH 01/30/24 16:51 0.5 mg STAT ONE Administration Methylprednisolone Sodium 0 mg 01/30/24 16:47 01/30/24 16:59 Succinate 125 mg/ Sterile IV 01/30/24 16:48 125 mg Water 2 ml STAT ONE Administration Sodium Chloride 1,000 mls @ 100 mls/hr 01/30/24 17:00 01/30/24 16:59 Sodium Chloride 0.9% 1000 Ml IV 02/29/24 16:59 100 mls/hr .Q10H HAYDEN Administration Levofloxacin/Dextrose 500 mg in 100 mls @ 100 mls/hr 01/30/24 16:47 01/30/24 17:02 Levofloxacin 500mg/100ml D5w IV 01/30/24 17:46 100 ml/hr STAT STA 100 mls/hr Administration Levofloxacin/Dextrose Confirm 01/30/24 16:57 Levofloxacin 500mg/100ml D5w Administered 01/30/24 16:58 Dose 500 mg in 100 mls @ ud IV .STK-MED ONE Sodium Chloride Confirm 01/30/24 16:56 Sodium Chloride 0.9% 1000 Ml Administered 01/30/24 16:57 Dose 1,000 mls @ ud .ROUTE .STK-MED ONE Methylprednisolone Sodium Succinate Confirm 01/30/24 16:56 Methylprednis Sod Succ 125 Mg/2 Ml Vial Administered 01/30/24 16:57 Dose 125 mg .ROUTE .STK-MED ONE Sterile Water Confirm 01/30/24 16:56 Water For Injection,Sterile 10 Ml Vial Administered 01/30/24 16:57 Dose 10 ml IJ .STK-MED ONE Lab/Rad Data: Laboratory Result Diagrams 01/30/24 16:51 01/30/24 16:51 Laboratory Results 01/30/24 01/30/24 01/30/24 Range/Units 16:51 16:51 16:51 WBC 6.4 (4.0-10.5) x10^3/uL RBC 5.58 (4.1-5.6) x10^6/uL Hgb 14.8 (12.5-18.0) g/dL Hct 45.4 (42-50) % MCV 81.4 (78-100) fL MCH 26.5 (26-32) pg MCHC 32.6 (32-36) g/dL RDW 13.8 (11.5-14.0) % Plt Count 131 L (150-450) x10^3/uL MPV 9.8 (7.5-11.0) fL Gran % 75.5 H (36.0-66.0) % Immature Gran % (Auto) 0.2 (0.00-0.4) % Nucleat RBC Rel Count 0.0 (0.00-0.1) % Eos # (Auto) 0.04 (0-0.5) x10^3/uL Immature Gran # (Auto) 0.01 (0.00-0.03) x10^3u/L Absolute Lymphs (auto) 0.78 L (1.0-4.6) x10^3/uL Absolute Monos (auto) 0.70 (0.0-1.3) x10^3/uL Absolute Nucleated RBC 0.00 (0.00-0.01) x10^3u/L Lymphocytes % 12.2 L (24.0-44.0) % Monocytes % 11.0 (0.0-12.0) % Eosinophils % 0.6 (0.00-5.0) % Basophils % 0.5 (0.0-0.4) % Absolute Granulocytes 4.83 (1.4-6.9) x10^3/uL Basophils # 0.03 (0-0.4) x10^3/uL Sodium 137 (135-145) mmol/L Potassium 3.7 (3.5-5.1) mmol/L Chloride 100 (98-107) mmol/L Carbon Dioxide 29 (22-30) mmol/L Anion Gap 11.4 (5-15) MEQ/L BUN 22 H (9-20) mg/dL Creatinine 1.03 (0.66-1.25) mg/dL Estimated GFR 74.8 ML/MIN Glucose 166 H (74-106) mg/dL Calcium 9.5 (8.4-10.2) mg/dL Total Bilirubin 0.60 (0.2-1.3) mg/dL AST 21 (17-59) U/L ALT 17 (0-50) U/L Alkaline Phosphatase 60 (38-126) U/L Troponin I < 0.012 (0.000-0.033) ng/mL NT-Pro-B Natriuret Pep 32.6 (<300) pg/mL Serum Total Protein 6.0 L (6.3-8.2) g/dL Albumin 3.7 (3.5-5.0) g/dL - Progress Progress: improved, re-examined Air Movement: good Blood Culture(s) Obtained: Yes Antibiotics given: Yes Counseled pt/family regarding: lab results, diagnosis, need for follow-up, rad results, smoking cessation Medical Desision Making - Independent Historian Additional History obtained from: Spouse - Diagnostic Testing Diagnostic test were ordered, analyzed, and reviewed by me: Yes Radiological Interpretation: Interpreted by me, Reviewed by me - Risk of complications Low Risk: Low risk of morbidity from additional dx testing or treatment The pt has a mod risk of morbidity or mortality based on: Need for prescription drug management - Departure Departure Disposition: Home Clinical Impression: COPD with exacerbation Condition: Stable Critical Care Time: No Referrals: [facility]OSP[facility],'S [Primary Care Provider] - Follow up/PCP as directed Instructions: Chronic Obstructive Pulmonary Disease, Shortness of Breath (Dys pnea) (DC), Exacerbation of COPD (DC) Additional Instructions: Discharge/Care Plan CHAPARRO PHILLIPS was seen on 01/30/24 in the Emergency Room. The patient was counseled regarding Diagnosis,Lab results, Imaging studies, need for follow up and when to return to the Emergency Room. Prescriptions given: Discharge Note I have spoken with the patient and/or caregivers. I have explained the patient's condition, diagnosis and treatment plan based on the information available to me at this time. I have answered the patient's and/or caregiver's questions and ad dressed any concerns. The patient and/or caregivers have as good understanding of the patient's diagnosis, condition and treatment plan as can be expected at this point. The vital signs have been stable. The patient's condition is stable and appropriate for discharge from the emergency department. The patient will pursue further outpatient evaluation with the primary care physician or other designated or consulting physician as outlined in the discharge instructions. The patient and/or caregivers are agreeable to this plan of care and follow-up instructions have been explained in detail. The patient and/or caregivers have received these instruction. The patient/and or caregivers are aware that any significant change in condition or worsening of symptoms should prompt an immediate return to this or the closest emergency department or call 911. CHAPARRO PHILLIPS was seen on 01/30/24 n the Emergency Room. At that time you were treated for an emergent condition, during your visit Laboratory, Radiology and/or other procedures may have been ordered. It is very important that you follow-up with your Primary Care Physician [facility] within the next 24-48 hours to review your Emergency Room visit and the final results of testing that was ordered. Some test results such as Urine Cultures, Blood Cultures, and other cultures if ordered will not be finalized for 24-48 hours. If you do not have a Primary Care Provider please call the medical records department at [phone] to obtain a copy of your results or you may sign into our patient portal to obtain these results by visiting us @ [email or web address] and completing the following steps: 1. Click on the Patient Portal link 2. Click the Patient Self Enrollment Link to complete the enrollment form and entering your 3. Once the enrollment form is completed you will receive an email with a temporary ID and password at the email address you provided. 4. Next choose a user name and password. Your user name must be at least 4 characters long and your password must be at least 4 characters long. 5. Choose a security question from the list and provide your answer to the question. If you already have signed into the Health Portal you may access your Health Care Information 26/04 by the following steps: 1. Login to our website @ [email or web address] 2. Enter your original user name and password. FAQS The [facility] Health Portal is an online tool that contains your Lab Results, Radiology Reports, Visit History, Discharge Instructions and Health Summary Lab and Radiology Results will not be available for 72 hours on the portal. The Portal is a secure site, passwords are encryted and URLs are re-written so they cannot be copied and pasted. You and authorized family members are the only ones who can access your Portal. Also there is a timeout feature that protects your information if you leave the Portal page open. If you have technical difficulty please use the Contact Us link on the page this will allow you to submit any questions you have regarding the Portal or you may contact the Medical Record Department at [phone] ext [phone]. Prescriptions: Levofloxacin [Levaquin 500 MG Tablet] 500 mg PO QAM #10 tablet Methylprednisolone Packet [Medrol Dosepack] 4 mg PO UD #21 packet
[2024-01-30 17:16] LABS: ALBUMIN 3.7 g/dL (3.5-5.0); ANION GAP 11.4 MEQ/L (5-15); BILIRUBIN,TOTAL 0.6 mg/dL (0.2-1.3); Calcium 9.5 mg/dL (8.4-10.2); Creatinine 1 1.03 mg/dL (0.66-1.25); EST GLOMERULAR FILTRATION RATE 74.8 ML/MIN; NT PRO BNPII 32.6 pg/mL (<300); Potassium 3.7 mmol/L (3.5-5.1)
[2024-01-30 17:19] LABS: TROPONIN < 0.012 ng/mL (0.000-0.033)
--- NOTE | 2024-01-30 19:54 | XRAY ---
Indication: Fever. Short of breath. Comparison: June 23, 2021 PA/lateral chest again hyperinflated. New minimal right middle lobe subsegmental atelectasis/scarring. No focal infiltrate, consolidation, or large effusion. Heart not enlarged again with small mediastinal calcified nodes. New small hiatal hernia. Bony thorax intact with osteopenia and mild degenerative changes. Limited upper abdomen again demonstrates CT proven large calcified splenic cyst. Impression: Nonacute hyperinflated chest with chronic features.
== END 2024-01-30 18:04 | disposition home or self-care (01) ==
LOC: ED 16:35
DX: J44.1 Chronic obstructive pulmonary disease with (acute) exacerbation (principal); R06.02 Shortness of breath; R05.1 Acute cough; E78.5 Hyperlipidemia, unspecified; I10 Essential (primary) hypertension; E11.9 Type 2 diabetes mellitus without complications; Z79.52 Long term (current) use of systemic steroids; Z79.899 Other long term (current) drug therapy
CPT/HCPCS: 36000; 36415; 71046; 80053; 83880; 84484; 85025; 87040; 93005; 93041; 94640; 94760; 96365; 96374; 99284; J1956; J2919; A9270-GY